=== PATIENT | male | born 1985 | race Hispanic/Latino ===

== ENCOUNTER 2017-09-23 15:02 | Emergency (ER) | payer BC, OTHER, SELFPAY ==
[2017-09-23 15:10] VITALS: BP 145/86; PULSE 112; RESP 20; TEMP 98.1; O2SAT 98
[2017-09-23] MEDS ORDERED: Lidocaine 1% Inj (20ml) INFIL STA (15:23)
[2017-09-23] MEDS ORDERED: Bacitracin 500 Units/gm Oint Foilpak UD TOP ONE (15:24)
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
[2017-09-23] MEDS ORDERED: Bacitracin 500 Units/gm Oint Foilpak UD ONE (15:31)
[2017-09-23] MEDS ORDERED: Lidocaine Hydrochloride 5 ML INJ ONE (15:31)
[2017-09-23] MEDS ORDERED: Tdap Vaccine 0.5 ml Vial (10-64 yrs) IM ONE ×2 (15:46→16:05)
== END 2017-09-23 16:06 | disposition home or self-care (01) ==
LOC: C.ER 15:02
DX: S01.21XA Laceration without foreign body of nose, initial encounter (principal); Y04.0XXA Assault by unarmed brawl or fight, initial encounter; Z72.0 Tobacco use